=== PATIENT | female | born 1955 | race Caucasian/White ===

== ENCOUNTER 2022-11-12 07:19 | Day surgery (SDC) | payer OTHER, MEDICARE ==
[2022-11-09 12:18] VITALS: BMI 26.4
[2022-11-12] MEDS ORDERED: PROPOFOL 120 ML ONE (07:43)
[2022-11-12] MEDS ORDERED: LIDOCAINE HCL/PF 2% SDV 5ML VIAL ONE (07:43)
[2022-11-12] MEDS ORDERED: GLYCOPYRROLATE 0.2 MG/1 ML VIAL ONE (08:06)
[2022-11-12 08:49] VITALS: RESP 20; TEMP 97.1
[2022-11-12 09:12] VITALS: BP 99/63; PULSE 66
== END 2022-11-12 09:10 | disposition home or self-care (01) ==
LOC: FASU-ENDO 07:19
PROVIDERS: ATTEND Internal Medicine Gastroenterology
PROC: 0DJD8ZZ Inspection of Lower Intestinal Tract, Via Natural or Artificial Opening Endoscopic (ICD-10-PCS; principal; 2022-11-12 08:19)
DX: Z12.11 Encounter for screening for malignant neoplasm of colon (principal); K64.8 Other hemorrhoids